=== PATIENT | female | born 1960 | race Caucasian/White ===

== ENCOUNTER → 2018-01-05 | Outpatient (CLI) | payer OTHER ==
[2018-01-05 09:17] LABS: MCH 28.3 pg (26.0-34.0); MCHC 32.2 g/dL (28.0-37.0); PLATELET COUNT* 149 thou/uL (150-400); RBC 3.18 mil/uL (4.20-5.00); WBC 4.7 thou/uL (4.0-11.0)
[2018-01-05 09:58] LABS: BASOPHILS 0.4 %; EOSINOPHILS 0.9 %; LYMPHOCYTES 9.9 %; MONOCYTES 9.2 %; NUCLEATED RBCS 0 /100WBC; POLYS 79.6 %
[2018-01-05 09:59] LABS: ABSOLUTE LYMPHOCYTES 0.5 thou/uL (0.8-5.3); ABSOLUTE MONOCYTES 0.4 thou/uL (0.0-1.2); ABSOLUTE NEUTROPHILS 3.8 thou/uL (1.6-8.1)
== END ==
LOC: M.LAB 08:47
DX: C25.9 Malignant neoplasm of pancreas, unspecified (principal)